=== PATIENT | female | born 1995 | race Caucasian/White ===

== ENCOUNTER 2021-03-29 16:12 | Emergency (ER) | payer OTHER ==
[~2021-03-29] VITALS: Ht 157.5 cm; Wt 77.1 kg
--- OUTSIDE RECORDS SUMMARY | 2021-03-29 16:14 | XMS ---
PreManage Notification: HARVEY MONDRAGON [employer] Events No recent Security Events currently on file CRITERIA MET - [facility] - 2 Visits in 30 Days CARE PROVIDERS There are no care providers on record at this time. Joaquina has no Care Guidelines for this patient. Sal VIS[facility] COUNT (12 MO.) [facility] T[facility] NOTE: Visits indicate total known visits. ED/C VISIT TRACKING (12 MO.) [facility]2021 16[facility] COMPLAINT: - ABD PAIN 03/20/2021 17:53 [facility] TYPE: Emergency COMPLAINT: - WEAKNESS INPATIENT VISIT TRACKING (12 MO.) No inpatient visits to display in this time frame [email or web address]
== END 2021-03-29 21:40 | disposition home or self-care (01) ==
LOC: ED 16:12
DX: K29.20 Alcoholic gastritis without bleeding (principal); R79.89 Other specified abnormal findings of blood chemistry; Z20.822 Contact with and (suspected) exposure to COVID-19
CPT/HCPCS: 80053; 81001; 83690; 85025; 96361; 96374; 96375; 96376; 99284-25; C9803; G0480; J2060; J2405; J7030; U0003